=== PATIENT | male | born 1970 | race African-American/Black ===

== ENCOUNTER → 2019-09-26 08:22 | Outpatient (CLI) | payer BC, SELFPAY ==
--- NOTE | ~2019-09-26 | CT_ITS ---
EXAMINATION: CT abdomen pelvis w con DATE: 09/26/2019 08:55 INDICATION: Umbilical hernia. TECHNIQUE: Computed tomography (CT) of the abdomen and pelvis was performed with 100 cc Omnipaque 350 intravenous contrast. The dose-length product was 1069.81 mGy-cm. Automated exposure control and ite rative reconstruction technique were employed. COMPARISON: None. FINDINGS: Lung bases are unremarkable. No significant pleural or pericardial effusion. Heart size is normal. No significant vascular abnormality. No lymphadenopathy. Small fat-containing umbilical herni a. Tiny supraumbilical hernia containing fat and small amount of fluid, sagittal image 87. No evidenc e for bowel obstruction. Prostate gland is enlarged. No abnormal pelvic masses or fluid collections. Normal appendix. No acute osseous abnormality. IMPRESSION: 1. Small fat-containing umbilical hernia. Tiny supraumbilical midline hernia containing fat and fluid . 2: Enlarged prostate gland. Reviewed, dictated and finalized at location B. IMPRESSION: 1. Small fat-containing umbilical hernia. Tiny supraumbilical midline hernia co ntaining fat and fluid. 2: Enlarged prostate gland.
== END ==
PROVIDERS: Visit Provider Nurse Practitioner Family
DX: K42.9 Umbilical hernia without obstruction or gangrene (principal); N40.0 Benign prostatic hyperplasia without lower urinary tract symptoms
CPT/HCPCS: 74177; Q9967